=== PATIENT | female | born 1975 | race Caucasian/White ===

== ENCOUNTER 2017-08-14 11:15 | Inpatient (IN) | payer OTHER ==
[~2017-08-14] VITALS: Ht 167.6 cm; Wt 90.7 kg
[2017-08-14] MEDS ORDERED: NORVASC5 MG PO (12:18)
[2017-08-14] MEDS ORDERED: TOPROL XL25 MG PO (12:19)
[2017-08-24] MEDS ORDERED: NAPR500T14 PO (14:28)
[2017-08-24] MEDS ORDERED: CODE1TAB37 PO (14:28)
== END 2017-08-24 15:38 | disposition home or self-care (01) | DRG 743 ==
LOC: SURG 08-21 08:26 → O/R 08-21 08:26 → SURH 08-21 10:15 → SURG 08-21 15:25 → SURH 08-23 16:25
PROVIDERS: Obstetrics & Gynecology
PROC: 0TJB8ZZ Inspection of Bladder, Via Natural or Artificial Opening Endoscopic (ICD-10-PCS; 2017-08-21)
PROC: 0UT90ZZ Resection of Uterus, Open Approach (ICD-10-PCS; principal; 2017-08-21 10:15)
PROC: 0UT50ZZ Resection of Right Fallopian Tube, Open Approach (ICD-10-PCS; 2017-08-21 10:15)
DX: D25.1 Intramural leiomyoma of uterus (principal); D25.2 Subserosal leiomyoma of uterus; I11.9 Hypertensive heart disease without heart failure

== ENCOUNTER 2018-01-24 19:15 | Emergency (ER) | payer OTHER ==
[~2018-01-24] VITALS: Ht 170.2 cm; Wt 86.2 kg
[~2018-01-24 19:15] MED LIST: CODE1TAB37 PO; NAPR500T14 PO; NORVASC5 MG PO; TOPROL XL25 MG PO
== END 2018-01-24 21:44 | disposition home or self-care (01) ==
LOC: ER 19:15
DX: A59.01 Trichomonal vulvovaginitis (principal)

== ENCOUNTER 2021-12-02 12:11 | Emergency (ER) | payer OTHER ==
[~2021-12-02] VITALS: Ht 167.6 cm; Wt 99.3 kg
== END 2021-12-02 14:25 | disposition home or self-care (01) ==
LOC: ER 12:11
DX: N39.0 Urinary tract infection, site not specified (principal); I10 Essential (primary) hypertension

== ENCOUNTER → 2022-02-06 | Emergency (ER) | payer OTHER ==
[~2022-02-06] VITALS: Ht 170.2 cm; Wt 120.2 kg
[~2022-02-06] MED LIST changes: +HYDROCORTISONE15 G3 TOP
== END | disposition home or self-care (01) ==
LOC: ER 17:52
DX: R21 Rash and other nonspecific skin eruption (principal); L50.9 Urticaria, unspecified

== ENCOUNTER 2022-11-15 13:21 | Emergency (ER) | payer OTHER ==
[~2022-11-15] VITALS: Ht 170.2 cm; Wt 100.7 kg
[2022-11-15] MEDS ORDERED: CRESTOR20 MG PO (13:54)
== END 2022-11-15 18:16 | disposition home or self-care (01) ==
LOC: ER 13:21
DX: L02.11 Cutaneous abscess of neck (principal)

== ENCOUNTER 2023-06-27 17:21 | Emergency (ER) | payer OTHER ==
[~2023-06-27] VITALS: Ht 167.6 cm; Wt 98.0 kg
[~2023-06-27 17:21] MED LIST changes: +CRESTOR20 MG PO
[2023-06-27] MEDS ORDERED: KETOROLAC TROMETHAMINE 30 MG VIAL IM STA (19:03)
== END 2023-06-27 20:46 | disposition home or self-care (01) ==
LOC: ER 17:22
DX: M79.602 Pain in left arm (principal); M50.322 Other cervical disc degeneration at C5-C6 level

== ENCOUNTER 2023-10-27 06:43 | Emergency (ER) | payer OTHER ==
[~2023-10-27] VITALS: Ht 170.2 cm; Wt 98.4 kg
[2023-10-27] MEDS ORDERED: KETOROLAC TROMETHAMINE 60 MG VIAL IM ONE (08:15)
[2023-10-27 08:33] LABS: PH,URINE 5.5 (5.0-8.0); URINE APPEARANCE Cloudy; URINE BILIRRUBIN Negative (NEGATIVE); URINE BLOOD Negative; URINE COLOR Yellow; URINE GLUCOSE Negative (NEGATIVE); URINE KETONE Negative (NEGATIVE); URINE LEUKOCYTE Negative; URINE NITRATE Negative; URINE PROTEIN Negative (NEGATIVE)
[2023-10-27 08:35] LABS: HEMATOCRIT 39.2 % (36.0-45.00); HEMOGLOBIN 13.2 g/dL (12.0-15.00); MEAN CELL VOLUME 87.8 fL (80.00-100.00); MEAN CORPUSCULAR HEMOGLOBIN 29.5 pg (27.00-32.0); MEAN CORPUSCULAR HGB CONC 33.6 g/dl (32.0-36.0); PLATELET COUNT 280 K/uL (150-450); RED BLOOD COUNT 4.47 M/uL (4.00-6.00); RED CELL DISTRIBUTION WIDTH 13.9 % (11.5-14.5)
[2023-10-27 08:35] LABS: URINE BACTERIA 3573.1 uL (0.0-1933); URINE EPITHELIAL CELLS 59.2 uL (0.0-38.8); URINE WBC 7.5 uL (0.0-23.2)
[2023-10-27 09:13] LABS: CALCIUM 9.3 mg/dL (8.5-10.1); CREATININE SERUM 0.59 mg/dL (0.55-1.02); GFR 109.73; POTASSIUM 4.16 mEq/L (3.5-5.1)
== END 2023-10-27 15:03 | disposition home or self-care (01) ==
LOC: ER 06:44
PROVIDERS: Emergency Medicine
DX: N83.201 Unspecified ovarian cyst, right side (principal); I10 Essential (primary) hypertension

== ENCOUNTER 2024-04-24 06:38 | Inpatient (IN) | payer OTHER ==
[~2024-04-24] VITALS: Ht 167.6 cm; Wt 103.4 kg
--- NOTE | 2024-04-24 07:19 | NUR ---
PACIENTE REFIERE DOLOR ABDOMINAL EN EL CUADRANTE INFERIOR DERECHO CON DOLOR A LA PALPACION QUE SE LE IRRADIA HACIA CAMPUZANO ESPALDA Y HACIA EL COSTADO. LA MISMA REFIERE QUE LE COMENZO EL ANGELICA Y MARIA INES SE LE INTENSIFICO
[2024-04-24 07:21] VITALS: O2SAT 98
[2024-04-24] MEDS ORDERED: KETOROLAC TROMETHAMINE 60 MG VIAL IM ONE ×2 (08:30)
[2024-04-24] MEDS ORDERED: ONDANSETRON HCL 2 MG/ML VIAL IV ONE (08:30)
[2024-04-24] MEDS ORDERED: ONDANSETRON HCL 2 MG/ML VIAL ONE (08:30)
[2024-04-24] MEDS ORDERED: FAMOtidine 10 MG/ML (4ML VIAL) IV ONE (08:30)
[2024-04-24] MEDS ORDERED: FAMOTIDINE/PF 20 MG/2 ML VIAL ONE (08:31)
--- NOTE | 2024-04-24 08:52 | NUR ---
SE ORIENTA PTE SOBRE TX A SEGUIR, LA MISMA REFIERE ENTENDER. SE BRANDON MUESTRA DE LAB, SE CANALIZA Y SE ADMINISTRA MED MARLEY ORDEN MEDICA
[2024-04-24 08:58] LABS: HEMATOCRIT 40.8 % (36.0-45.00); HEMOGLOBIN 13.6 g/dL (12.0-15.00); MEAN CELL VOLUME 89.6 fL (80.00-100.00); MEAN CORPUSCULAR HEMOGLOBIN 29.8 pg (27.00-32.0); MEAN CORPUSCULAR HGB CONC 33.2 g/dl (32.0-36.0); PLATELET COUNT 290 K/uL (150-450); RED BLOOD COUNT 4.56 M/uL (4.00-6.00); RED CELL DISTRIBUTION WIDTH 13.8 % (11.5-14.5)
[2024-04-24 09:37] LABS: INR 0.99; PARTIAL THROMBOPLASTIN TIME 25.7 SECONDS (22.0-34.0); PROTHROMBIN TIME 10.8 SECONDS (9.0-11.5)
[2024-04-24 09:49] LABS: ALBUMIN 3.4 gm/dL (3.4-5.0); BILIRUBIN TOTAL 0.38 mg/dL (0.3-1.2); CALCIUM 10.3 mg/dL (8.5-10.1); CREATININE SERUM 0.6 mg/dL (0.55-1.02); GFR 107.16; GLOBULINA 3.6 G/DL (2.4-3.5); POTASSIUM 4.14 mEq/L (3.5-5.1)
[2024-04-24] MEDS ORDERED: DOXYCYCLINE HYCLATE 100MG IV SCH ×2 (13:57→14:08)
[2024-04-24] MEDS ORDERED: CEFTRIAXONE SODIUM 1,000 MG VIAL IV ONE (14:00)
[2024-04-24] MEDS ORDERED: MORPHINE SULFATE 2 MG/ML CARTRIDGE IV SCH (17:00)
[2024-04-24] MEDS ORDERED: MORPHINE SULFATE 2 MG/ML CARTRIDGE IV PRN (17:21)
[2024-04-24 19:51] LABS: PH,URINE 6.5 (5.0-8.0); URINE APPEARANCE Cloudy; URINE BILIRRUBIN Negative (NEGATIVE); URINE BLOOD Negative; URINE COLOR Yellow; URINE GLUCOSE Negative (NEGATIVE); URINE KETONE Negative (NEGATIVE); URINE LEUKOCYTE Negative; URINE NITRATE Negative; URINE PROTEIN Trace (NEGATIVE)
[2024-04-24 19:55] LABS: URINE BACTERIA 506.6 uL (0.0-1933); URINE EPITHELIAL CELLS 52.8 uL (0.0-38.8); URINE WBC 16.9 uL (0.0-23.2)
[2024-04-24 20:21] VITALS: BP 127/74
[2024-04-24 20:37] LABS: URINE CAST 0.14 uL (0.0-1.40)
[2024-04-24 20:39] LABS: URINE CRYSTALS MANY /HPF
[2024-04-24] MEDS ORDERED: FAMOtidine 20 MG TABLET PO SCH (21:00)
[2024-04-25] VITALS: BP 118/72
[2024-04-25 08:26] VITALS: BP 126/72
[2024-04-25] MEDS ORDERED: CEFTRIAXONE SODIUM 1,000 MG VIAL IV SCH (09:00)
[2024-04-25] MEDS ORDERED: AMLODIPINE BESYLATE 5 MG TABLET PO SCH (09:00)
[2024-04-25] MEDS ORDERED: METOPROLOL SUCCINATE 25 MG TAB.SR.24H PO SCH (09:00)
[2024-04-25 15:55] VITALS: BP 119/80
[2024-04-26 01:09] VITALS: BP 115/71
[2024-04-26 08:00] VITALS: BP 136/82
[2024-04-26] MEDS ORDERED: DOXYCYCLINE HY100 M2 PO (13:11)
== END 2024-04-26 13:20 | disposition home or self-care (01) | DRG 759 ==
LOC: ER 06:41 → OB/GYN 17:56
PROVIDERS: General Practice; ADMIT Obstetrics & Gynecology; ATTEND Obstetrics & Gynecology
PROC: BW21Y0Z Computerized Tomography (CT Scan) of Abdomen and Pelvis using Other Contrast, Unenhanced and Enhanced (ICD-10-PCS; principal; 2024-04-24)
PROC: BU4CZZZ Ultrasonography of Uterus and Ovaries (ICD-10-PCS; 2024-04-24)
DX: N70.93 Salpingitis and oophoritis, unspecified (principal); N83.201 Unspecified ovarian cyst, right side; R10.31 Right lower quadrant pain